=== PATIENT | male | born 1965 | race Caucasian/White ===

== ENCOUNTER 2019-12-23 04:51 | Day surgery (SDC) | payer BC, OTHER ==
[2019-12-22 13:04] VITALS: BMI 29.6
[~2019-12-23 04:51] MED LIST: BUPIVACAINE HCL/PF 0.5% (5 MG/ML) 30 ML VIAL IJ ONE; LIDOCAINE HCL 1%, 10 MG/ML (20ML VIAL) ID ONE
[2019-12-23] MEDS ORDERED: BUPIVACAINE HCL/PF 0.25% (2.5MG/ML) 10 ML VIAL ONE (08:03)
[2019-12-23] MEDS ORDERED: LIDOCAINE HCL 1%, 10 MG/ML (20ML VIAL) ONE (08:03)
[2019-12-23] MEDS ORDERED: BETAMET ACET/BETAMET NA PH 30 MG/5 ML VIAL ONE (12:51)
[2019-12-23] MEDS ORDERED: BUPIVACAINE HCL/PF 0.5% (5 MG/ML) 30 ML VIAL IJ ONE ×2 (13:35)
[2019-12-23] MEDS ORDERED: LIDOCAINE HCL/PF 2% SDV 5ML VIAL ONE (13:35)
[2019-12-23] MEDS ORDERED: LIDOCAINE HCL 1%, 10 MG/ML (20ML VIAL) ID ONE ×2 (13:35)
[2019-12-23] MEDS ORDERED: IOHEXOL 300 MG/ML INFUS..BTL IV ONE (13:35)
[2019-12-23] MEDS ORDERED: IOHEXOL 180 MG/1 ML ML IJ ONE (13:35)
[2019-12-23] MEDS ORDERED: PROPOFOL 20 ML ONE (13:35)
[2019-12-23 14:11] VITALS: TEMP 97.7
[2019-12-23 15:37] VITALS: BP 130/80; PULSE 60
--- NOTE | 2019-12-25 12:26 | PROC ---
Procedure Note Procedure: Date: 12/23/2019 Name of the patient: Joe Jarrell Preoperative Diagnosis: Lower back pain, Lumbar facet arthropathy Right/ Left Postoperative Diagnosis: Same Procedure Performed: Lumbar facet Medial Branch diagnostic Block at L3-S1 levels Right/ Left Anesthesia: Local / MAC Procedure: I discussed with the patient in detail about the risks, benefits and alternatives to treatment not only limited to infection, headache, numbness, weakness and injury to nerves, spinal cord, blood vessels and muscles. The patient understood, agreed and signed the written consent. The patient was placed in the prone position with the head, abdomen and legs supported with the pillows. The patients lower back was prepped and draped in a sterile fashion. Under C-arm and Scottie dog view eye was identified the L2-3, L3-4 and L4-5 levels on Left/ Right side. At the level of L3-4 (L3) on Right, Lidocaine was infiltrated into the skin and subcutaneous tissue. A spinal needle was used to approach the eye of the Scottie dog in the oblique view until the tip of the needle contacted the bone with the use of intermittent fluoroscopy. Needle placement was confirmed both in the AP and oblique view. Aspiration was done which was negative for blood. omnipaque was injected to see the spread of the dye. A solution of 1 ml of preservative-free 0.5% Marcaine was injected at this level. Similar procedure was repeated at left/ Right L4-5 (L4) and L5-S1 (L5) and Left L3-4 level. The patient tolerated the procedure well. Bleeding was checked. There were no immediate complications. The patient was observed and asked about pain level. The patient mentioned that there was improvement was more than 80%. The patient was told to apply ice at the injection sites. If there is any problem, call my office or report to the ER . The patient was discharged as per [facility] samson. ^ Jose Pineda M.D.
== END 2019-12-23 15:15 | disposition home or self-care (01) ==
LOC: JASU-SURG 04:51
PROVIDERS: ATTEND Physical Medicine & Rehabilitation
PROC: 3E0T33Z Introduction of Anti-inflammatory into Peripheral Nerves and Plexi, Percutaneous Approach (ICD-10-PCS; 2019-12-23)
PROC: 3E0T3BZ Introduction of Anesthetic Agent into Peripheral Nerves and Plexi, Percutaneous Approach (ICD-10-PCS; principal; 2019-12-23 12:00)
DX: M47.817 Spondylosis without myelopathy or radiculopathy, lumbosacral region (principal); M54.5 Low back pain
CPT/HCPCS: 76000-TC-FY

== ENCOUNTER 2020-07-30 05:31 | Day surgery (SDC) | payer BC, OTHER ==
[2020-07-28 17:41] VITALS: BMI 30.4
[2020-07-30] MEDS ORDERED: LIDOCAINE HCL 1% PRESERVATIVE FREE - 30ML VIAL IJ ONE (10:03)
[2020-07-30] MEDS ORDERED: IOHEXOL 180 MG/1 ML ML IJ ONE ×2 (10:06)
[2020-07-30] MEDS ORDERED: BUPIVACAINE HCL/PF 0.75% 10 ML VIAL NR ONE ×2 (10:11)
[2020-07-30 11:00] VITALS: BP 140/82; PULSE 71; TEMP 97.9
== END 2020-07-30 11:00 | disposition home or self-care (01) ==
LOC: JASU-SURG 05:31
PROVIDERS: ATTEND Pain Medicine Pain Medicine
PROC: BR16YZZ Fluoroscopy of Lumbar Facet Joint(s) using Other Contrast (ICD-10-PCS; 2020-07-30)
PROC: 3E0T3BZ Introduction of Anesthetic Agent into Peripheral Nerves and Plexi, Percutaneous Approach (ICD-10-PCS; principal; 2020-07-30 10:00)
DX: M47.816 Spondylosis without myelopathy or radiculopathy, lumbar region (principal)
CPT/HCPCS: 76000-TC-FY

== ENCOUNTER 2020-08-27 04:05 | Day surgery (SDC) | payer OTHER ==
[2020-08-25 19:55] VITALS: BMI 29.6
[~2020-08-27 04:05] MED LIST changes: -BUPIVACAINE HCL/PF 0.5% (5 MG/ML) 30 ML VIAL IJ ONE; +BUPIVACAINE HCL/PF 0.75% 10 ML VIAL NR ONE; +IOHEXOL 180 MG/1 ML ML IJ ONE; +LIDOCAINE 1% P/F 10 MG/ML VIAL INF ONE; -LIDOCAINE HCL 1%, 10 MG/ML (20ML VIAL) ID ONE
[2020-08-27] MEDS ORDERED: LIDOCAINE HCL/PF 1% SDV 5ML VIAL ONE (07:22)
[2020-08-27] MEDS ORDERED: BUPIVACAINE HCL/PF 0.75% 10 ML VIAL ONE (07:22)
[2020-08-27] MEDS ORDERED: IOHEXOL 180 MG/1 ML ML IJ ONE (10:51)
[2020-08-27] MEDS ORDERED: BUPIVACAINE HCL/PF 0.75% 10 ML VIAL NR ONE (10:55)
[2020-08-27] MEDS ORDERED: LIDOCAINE 1% P/F 10 MG/ML VIAL INF ONE (10:55)
[2020-08-27 11:31] VITALS: BP 141/88; PULSE 62; TEMP 98.6
== END 2020-08-27 11:50 | disposition home or self-care (01) ==
LOC: JASU-SURG 04:05
PROVIDERS: ATTEND Pain Medicine Pain Medicine
PROC: BR16YZZ Fluoroscopy of Lumbar Facet Joint(s) using Other Contrast (ICD-10-PCS; 2020-08-27)
PROC: 3E0T3BZ Introduction of Anesthetic Agent into Peripheral Nerves and Plexi, Percutaneous Approach (ICD-10-PCS; principal; 2020-08-27 11:30)
DX: M47.816 Spondylosis without myelopathy or radiculopathy, lumbar region (principal)
CPT/HCPCS: 76000-TC-FY

== ENCOUNTER → 2020-10-22 | Day surgery (SDC) | payer OTHER ==
[2020-10-21 19:43] VITALS: BMI 30.4
[~2020-10-22] MED LIST changes: -BUPIVACAINE HCL/PF 0.75% 10 ML VIAL NR ONE; -IOHEXOL 180 MG/1 ML ML IJ ONE; -LIDOCAINE 1% P/F 10 MG/ML VIAL INF ONE; +LIDOCAINE HCL/PF 2% SDV 5ML VIAL ONE
[2020-10-22 13:04] VITALS: BP 133/83; PULSE 75; TEMP 98.6
== END | disposition home or self-care (01) ==
LOC: JASU-SURG 04:23
PROVIDERS: ATTEND Pain Medicine Pain Medicine
DX: Z53.8 Procedure and treatment not carried out for other reasons (principal)

== ENCOUNTER 2021-01-20 04:31 | Day surgery (SDC) | payer OTHER ==
[2021-01-18 15:24] VITALS: BMI 30.7
[2021-01-20 09:53] VITALS: TEMP 97.8
[2021-01-20 10:26] VITALS: BP 137/78; PULSE 62
== END 2021-01-20 11:05 | disposition home or self-care (01) ==
LOC: JASU-ENDO 04:31
PROVIDERS: ATTEND Internal Medicine Gastroenterology
PROC: 0DJD8ZZ Inspection of Lower Intestinal Tract, Via Natural or Artificial Opening Endoscopic (ICD-10-PCS; principal; 2021-01-20 09:18)
DX: Z12.11 Encounter for screening for malignant neoplasm of colon (principal); K56.2 Volvulus; K64.8 Other hemorrhoids

== ENCOUNTER 2022-10-10 04:14 | Day surgery (SDC) | payer OTHER ==
[2022-10-09 15:05] VITALS: BMI 31.9
[2022-10-10 11:52] VITALS: TEMP 98
[2022-10-10 12:25] VITALS: BP 110/70; PULSE 65; RESP 18
== END 2022-10-10 12:35 | disposition home or self-care (01) ==
LOC: JASU-ENDO 04:14
PROVIDERS: ATTEND Internal Medicine Gastroenterology
PROC: 0DBP8ZX Excision of Rectum, Via Natural or Artificial Opening Endoscopic, Diagnostic (ICD-10-PCS; 2022-10-10)
PROC: 0DBH8ZX Excision of Cecum, Via Natural or Artificial Opening Endoscopic, Diagnostic (ICD-10-PCS; principal; 2022-10-10 12:00)
DX: Z12.11 Encounter for screening for malignant neoplasm of colon (principal); D12.0 Benign neoplasm of cecum; D12.8 Benign neoplasm of rectum; K64.8 Other hemorrhoids; K59.89 Other specified functional intestinal disorders
CPT/HCPCS: 88305-TC